=== PATIENT | female | born 1965 | race African-American/Black ===

== ENCOUNTER 2021-02-22 12:33 | Emergency (ER) | payer OTHER, SELFPAY ==
[2021-02-22 12:45] VITALS: BP 151/99; PULSE 110; RESP 16; TEMP 36.8; O2SAT 100
--- NOTE | 2021-02-22 13:10 | ECG_ITS ---
Measurements Intervals [place] Rate: 108 P: 72 [place]: 172 QRS: 49 QRSD: 84 T: 48 QT: 349 QTc: 468 Interpretive Statements SINUS TACHYCARDIA POSSIBLE LEFT ATRIAL ENLARGEMENT MINIMAL Q WAVES- ANTEROLAT/INF LEADS ABNORMAL ECG Electronically Signed On 02-22-2021 13:13:57 CDT by Tremaine Bianchi D.O.
[2021-02-22 13:30] LABS: Basophils Percent Auto 0.4 % (0.2-1.2); Eosinophils Percent Auto 0.2 % (0-4.4); Hematocrit 37.3 % (37.0-47.0); Hemoglobin 12.5 g/dL (12.0-15.0); Immature Granulocyte Absolute 0.01 K/mm3 (0.00-0.031); Immature Granulocyte Percent A 0.2 % (0-0.5); Lymphocytes Absolute Auto 1.94 K/mm3 (0.9-3.2); Lymphocytes Percent Auto 39.7 % (18.3-44.2); Mean Corpuscular HGB Conc 33.5 g/dl (32-36); Mean Corpuscular Hemoglobin 30.9 pg (26-34); Mean Corpuscular Volume 92.3 fl (80-100); Monocytes Absolute Auto 0.5 K/mm3 (0.1-0.6); Monocytes Percent Auto 9.2 % (2.6-8.5); Neutrophils Absolute Auto 2.5 K/mm3 (1.3-6.7); Neutrophils Percent Auto 50.3 % (45.5-73.1); Platelet Count Result 236 k/mm3 (150-375); Red Blood Count 4.04 M/mm3 (4.2-5.4); Red Cell Distribution Width 13.1 % (11.5-14.5); White Blood Count 4.9 K/mm3 (4.5-10.0)
[2021-02-22 13:33] LABS: Add Urine Microscopic? NO; Appearance Urine Clear (Clear); Bilirubin Urine Negative (Negative); Blood Urine Negative (Negative); Color Urine Colorless (Yellow); Glucose Urine UA Negative (Negative); Ketones Urine Negative (Negative); Leukocyte Esterase Ur Negative LEU/UL (Negative); Nitrate Urine Negative (Negative); Protein Urine Negative (Negative); Urobilinogen Urine Negative mg/dL (<2.0)
[2021-02-22 13:43] LABS: Specific Grav Ur 1.002 (1.001-1.035)
[2021-02-22 13:46] LABS: Alanine Aminotransferase 36 U/L (4-35); Albumin Level 4.3 g/dL (3.5-5.1); Alkaline Phosphatase 101 U/L (38-126); Anion Gap 9 mmol/L (8-16); Aspartate Amino Transferase 49 U/L (14-36); Bilirubin,Total 0.3 mg/dL (0.2-1.3); Blood Urea Nitrogen 3 mg/dL (7-17); Calcium 9.7 mg/dL (8.4-10.2); Carbon Dioxide 24 mmol/L (22-30); Chloride 108 mmol/L (98-107); Estimated CRCL calculation 75 ml/min; Estimated Glomerular Filt Rate > 60; Glucose 111 mg/dL (65-110); Potassium 3.5 mmol/L (3.4-5.0); Sodium 141 mmol/L (137-145)
[2021-02-22 14:40] VITALS: BP 140/78; PULSE 98; RESP 18; TEMP 36.8; O2SAT 100
[2021-02-22 15:14] LABS: Amphetamine Screen Urine Negative (Negative); Barbiturate Screen Urine Negative (Negative); Benzodiazepines Screen Urine Negative (Negative); Cannabinoid Screen Urine Positive (Negative); Cocaine Screen Urine Negative (Negative); Methadone Screen Urine Negative (Negative); Opiate Screen Urine Negative (Negative); Phencyclidine Screen Urine Negative (Negative)
[2021-02-22] MEDS: SODIUM CHLORIDE 0.9% IV 1,000 ML 999 ML IV CONT (15:45)
[2021-02-22] MEDS: FAMOTIDINE 20 MG/2 ML VIAL IV PUSH (15:45)
[2021-02-22] MEDS: HYOSCYAMINE SULFATE 0.125 MG TABLET PO (15:46)
--- NOTE | 2021-02-22 15:51 | ED.GENADULT ---
HPI - General Adult General Chief complaint: Anxiety Stated complaint: ANXIETY, NOT SLEPT IN 24HR Time Seen by Provider: 02/22/21 15:22 Source: patient and RN notes reviewed Mode of arrival: ambulatory Limitations: no limitations History of Present Illness HPI narrative: Patient is a 55-year-old female who presents to emergency department for evaluation of GI upset that was noticed this morning patient took an ambulance to the emergency department on arrival is in the room in no distress patient denies any vomiting diarrhea has psych history with recent hospitalizations but denies any suicidal or homicidal ideation at this time patient otherwise presents in no distress and is resting comfortably in the room upon arrival Related Data Allergies Allergy/AdvReac Type Severity Reaction Status Date / Time No Known Allergies Allergy Verified 02/22/21 15:01 Review of Systems Review of Systems: All systems reviewed & are unremarkable except as noted in HPI and below PMFSH Past Medical History Medical History (Updated 02/22/21 @ 15:57 by Franklin Donaldson PA-C) Abdominal pain Social History Social History (Updated 02/22/21 @ 15:55 by Franklin Donaldson PA-C) Smoking status: Never smoker Substance use type: does not use Exam Narrative: Exam Narrative: GENERAL: Well-appearing, well-nourished, and in no acute distress. HEAD: Normocephalic, atraumatic. EYES: PERRLA and EOMI. ENT: Nares clear, no rhinorrhea or epistaxis. Mucous membranes moist. CHEST: Clear to auscultation. No respiratory distress. No wheezes rales or rhonchi HEART: Regular rate and rhythm. No murmur heard. Normal peripheral pulses. ABDOMEN: Soft, nontender, nondistended EXTREMITIES: Normal range of motion. No edema. SKIN: Warm, dry, no rash. NEURO: No focal deficits. Alert and oriented x3. Cranial nerves II through XII grossly intact PSYCH: Normal mood and affect. Course Course Emergency Course: Patient in the room in no distress aware of case findings treatment plan and diagnosis agreeing to follow-up as instructed no high risk changes in the evaluation nontender abdominal exam Vital Signs Vital signs: Vital Signs Temperature 98.3 F 02/22/21 12:45 Pulse Rate 110 H 02/22/21 12:45 Respiratory Rate 16 02/22/21 12:45 Blood Pressure 151/99 H 02/22/21 12:45 Pulse Oximetry 100 07/21/21 12:45 Temperature 98.3 F 02/22/21 14:40 Pulse Rate 98 02/22/21 14:40 Respiratory Rate 18 02/22/21 14:40 Blood Pressure 140/78 02/22/21 14:40 Pulse Oximetry 100 02/22/21 14:40 Medical Decision Making MDM Narrative Medical decision making narrative: Patient in the room afebrile nontoxic-appearing no distress felt appropriate for outpatient reevaluation resting comfortably in the room in no distress Vital Signs Vital Signs: Vital Signs Temperature 98.3 F 02/22/21 12:45 Pulse Rate 110 H 02/22/21 12:45 Respiratory Rate 16 02/22/21 12:45 Blood Pressure 151/99 H 02/22/21 12:45 Pulse Oximetry 100 02/22/21 12:45 Temperature 98.3 F 02/22/21 14:40 Pulse Rate 98 02/22/21 14:40 Respiratory Rate 18 02/22/21 14:40 Blood Pressure 140/78 02/22/21 14:40 Pulse Oximetry 100 02/22/21 14:40 Lab Data Result diagrams: 02/22/21 13:15 02/22/21 13:15 Labs: Lab Results 02/22/21 02/22/21 02/22/21 Range/Units 13:15 13:15 13:15 WBC 4.9 (4.5-10.0) K/mm3 RBC 4.04 L (4.2-5.4) M/mm3 Hgb 12.5 (12.0-15.0) g/dL Hct 37.3 (37.0-47.0) % MCV 92.3 (80-100) fl MCH 30.9 (26-34) pg MCHC 33.5 (32-36) g/dl RDW 13.1 (11.5-14.5) % Plt Count 236 (150-375) k/mm3 MPV 11.0 H (7.4-10.4) fl Immature Gran % (Auto) 0.2 (0-0.5) % Neut % (Auto) 50.3 (45.5-73.1) % Lymph % (Auto) 39.7 (18.3-44.2) % [place] % (Auto) 9.2 H (2.6-8.5) % Eos % (Auto) 0.2 (0-4.4) % Baso % (Auto) 0.4 (0.2-1.2) % Lymph # (Auto) 1.94 (0.9-3.2) K/mm3 [place]
[2021-02-22 16:40] VITALS: BP 122/68; PULSE 78; RESP 18; O2SAT 99
== END 2021-02-22 16:41 | disposition home or self-care (01) ==
PROVIDERS: Emergency Medicine; Emergency Provider Emergency Medicine
DX: R10.9 Unspecified abdominal pain (principal)
CPT/HCPCS: 36415; 80053; 80307; 81003; 85025; 93005; 96361; 96374; 99284; A9270; J7030

== ENCOUNTER 2021-05-11 12:39 | Emergency (ER) | payer OTHER, SELFPAY ==
--- NOTE | ~2021-05-11 | CT_ITS ---
EXAMINATION: CT abdomen pelvis w con EXAM DATE: 05/11/2021 15:06 INDICATION: Epigastric pain. TECHNIQUE: Spiral CT of the abdomen and pelvis was performed following intravenous injection of 100 m L Omnipaque 350. Axial, coronal and sagittal images of the abdomen and pelvis were reviewed. The do se-length product (DLP) for this examination was 207.19 mGy-cm. The exposure was tailored according to patient size (auto mA exposure control), and iterative reconstruction (ASIR) was used as additiona l dose reduction technique. There is no prior study for comparison. FINDINGS: The liver, spleen, adrenal glands and pancreas are unremarkable. Gallbladder is unremarkab le. No biliary obstruction. The patient appears to have had a hysterectomy, and there is right adne xal mass measuring 5.7 cm, appears to have some calcification inside. Potentially could be a teratoma but malignant histology not excludable and follow-up pelvic sonogram is indicated. Kidneys enhance symmetrically. No hydronephrosis. The bladder is unremarkable. There is no retroperitoneal or pelvi c lymphadenopathy. The appendix is normal. The stomach and small bowel are unremarkable. There is moderate to large am ount of colonic stool. No free intraperitoneal gas. The heart is normal in size. There are no pe ricardial or pleural effusions. The lung bases are unremarkable. There are no osteoblastic or osteo lytic lesions identified. IMPRESSION: 1. Right adnexal mass; follow-up nonemergent pelvic sonogram. 2. Moderate to large amount of colonic stool and gas. Consider constipation. Reviewed, dictated and finalized at location G.
--- NOTE | 2021-05-11 13:16 | ED.ABDPAIN ---
HPI - Abdominal Pain General Chief Complaint: Abdominal Pain Stated Complaint: abd pain for 1 week Time Seen by Provider: 05/11/21 13:07 Source: RN notes reviewed History of Present Illness HPI narrative: Patient presents emergency department from home for abdominal pain. Patient states she has been having dull pain for the past 2 weeks. The pain is located in the upper abdomen described as burning in nature. States the pain will come and go but does not fully resolve she denies any fevers or chills nausea vomiting diarrhea or any other symptoms states she supposed be on omeprazole but has been out of her medication Related Data Allergies Allergy/AdvReac Type Severity Reaction Status Date / Time Penicillins Allergy Rash Verified 05/11/21 13:21 Review of Systems Review of Systems: Gen.: Denies fevers or chills ENT: Denies congestion Respiratory: Denies shortness of breath or cough CV: Denies chest pain or palpitations GI: See HPI denies burning, urgency, frequency or hematuria Musculoskeletal: Denies back pain or muscle pain Neuro: Denies numbness, tingling, weakness or focal weakness Skin: Denies rash Except as documented, all other systems reviewed and negative [facility] Past Medical History Medical History Abdominal pain Social History Social History Smoking status: Never smoker Substance use type: does not use Exam Narrative: APPEARANCE: No acute distress, nontoxic, resting in bed HEENT: Normocephalic, atraumatic, OMM RESPIRATORY: No respiratory distress, clear to auscultation bilaterally with no rhonchi wheezing or rales CARDIOVASCULAR: RRR s murmur ABDOMINAL: Soft nondistended tender palpation left upper quadrant epigastric and right upper quadrant no tenderness right lower quadrant left lower quadrant no rebound or guarding MUSCULOSKELETAl: Moves all extremities. No clubbing, cyanosis or edema. NEURO: Awake and alert. Following commands, speech normal, no focal deficits SKIN:: Warm, dry. Normal Color PSYCHIATRIC: Normal affect/mood Course Course Emergency Course: Patient states he is feeling much better following GI cocktail. Patient states that they are feeling much better at this time. States abdominal pain has resolved. Repeat abdominal exam shows the patient's abdomen to be soft and nontender. Discussed with patient results of workup and diagnosis. Discussed need for follow-up with primary care physician, reasons to return to the emergency department in proper use of medication. Patient understands and agrees to current treatment plan. Discussed CT results and need for follow-up with [facility] will refer Vital Signs Vital signs: Vital Signs Temperature 97.8 F 05/11/21 13:17 Pulse Rate 100 05/11/21 13:17 Respiratory Rate 18 05/11/21 13:17 Blood Pressure 99/72 L 05/11/21 13:17 Pulse Oximetry 99 05/11/21 13:17 Temperature 97.8 F 05/11/21 13:17 Pulse Rate 100 05/11/21 13:17 Respiratory Rate 18 05/11/21 13:17 Blood Pressure 99/72 L 05/11/21 13:17 Pulse Oximetry 99 05/11/21 13:17 MDM - Abdominal Pain MDM Narrative Medical decision making narrative: Patient's abdomen is soft without significant pain or signs of surgical abdomen on serial exams. Lab and x-ray evaluations are reviewed and patient is felt to be a reasonable candidate for outpatient management. Patient was instructed as to limitations of x-ray and laboratory evaluation and encouraged to return to ED or primary physician for repeat exam in 12 hours if continued or worsening pain Lab Data Result diagrams: 05/11/21 14:06 05/11/21 14:06 Labs: Lab Results 05/11/21 05/11/21 05/11/21 Range/Units 13:36 14:06 14:06 WBC 6.3 (4.5-10.0) K/mm3 RBC 4.40 (4.2-5.4) M/mm3 Hgb 13.9 (12.0-15.0) g/dL Hct 39.7 (37.0-47.0) % MCV 90.2 (80-100) fl MCH 31.6 (
[2021-05-11 13:17] VITALS: BP 99/72; PULSE 100; RESP 18; TEMP 36.6; O2SAT 99
[2021-05-11 14:03] LABS: Add Urine Microscopic? YES; Appearance Urine Cloudy (Clear); Bacteria Urine Trace /hpf; Bilirubin Urine Negative (Negative); Blood Urine Negative (Negative); Color Urine Yellow (Yellow); Glucose Urine UA Negative (Negative); Ketones Urine Negative (Negative); Leukocyte Esterase Ur Negative LEU/UL (Negative); Mucus Urine Rare /lpf; Nitrate Urine Negative (Negative); Protein Urine Negative (Negative); RBC Urine 0-2 /hpf (0-2); Specific Grav Ur 1.008 (1.001-1.035); Squamous Epithelial Cell Urine Few /hpf (Few); Urobilinogen Urine Negative mg/dL (<2.0); WBC Urine 0-3 /hpf
[2021-05-11 14:18] LABS: Basophils Percent Auto 0.5 % (0.2-1.2); Eosinophils Absolute Auto 0.1 K/mm3 (0-0.3); Eosinophils Percent Auto 1.1 % (0-4.4); Hematocrit 39.7 % (37.0-47.0); Hemoglobin 13.9 g/dL (12.0-15.0); Immature Granulocyte Absolute 0.01 K/mm3 (0.00-0.031); Immature Granulocyte Percent A 0.2 % (0-0.5); Lymphocytes Absolute Auto 3.51 K/mm3 (0.9-3.2); Lymphocytes Percent Auto 56.1 % (18.3-44.2); Mean Corpuscular Hemoglobin 31.6 pg (26-34); Mean Corpuscular Volume 90.2 fl (80-100); Mean Platelet Volume 11.3 fl (7.4-10.4); Monocytes Absolute Auto 0.5 K/mm3 (0.1-0.6); Monocytes Percent Auto 7.7 % (2.6-8.5); Neutrophils Absolute Auto 2.2 K/mm3 (1.3-6.7); Neutrophils Percent Auto 34.4 % (45.5-73.1); Platelet Count Result 225 k/mm3 (150-375); Red Cell Distribution Width 12.8 % (11.5-14.5); White Blood Count 6.3 K/mm3 (4.5-10.0)
[2021-05-11 14:24] LABS: Alanine Aminotransferase 20 U/L (4-35); Albumin Level 4.6 g/dL (3.5-5.1); Alkaline Phosphatase 121 U/L (38-126); Anion Gap 8 mmol/L (8-16); Aspartate Amino Transferase 41 U/L (14-36); Bilirubin,Total 0.4 mg/dL (0.2-1.3); Blood Urea Nitrogen 11 mg/dL (7-17); Calcium 9.7 mg/dL (8.4-10.2); Carbon Dioxide 28 mmol/L (22-30); Chloride 102 mmol/L (98-107); Estimated CRCL calculation 57 ml/min; Estimated Glomerular Filt Rate > 60; Glucose 104 mg/dL (65-110); Lipase 72 U/L (23-300); Potassium 4.1 mmol/L (3.4-5.0); Sodium 138 mmol/L (137-145)
[2021-05-11 16:09] VITALS: BP 111/80; PULSE 87; RESP 18; O2SAT 97
== END 2021-05-11 16:13 | disposition home or self-care (01) ==
PROVIDERS: Family Medicine; Emergency Provider Emergency Medicine
DX: R10.13 Epigastric pain (principal); N94.89 Other specified conditions associated with female genital organs and menstrual cycle
CPT/HCPCS: 36415; 74177; 80053; 81001; 83690; 85025; 99284; A9270; Q9967

== ENCOUNTER 2021-06-12 18:50 | Emergency (ER) | payer OTHER, SELFPAY ==
--- NOTE | ~2021-06-12 | CT_ITS ---
EXAMINATION: CT abdomen pelvis w con DATE: 06/13/2021 00:31 INDICATION: Low abdominal pain. TECHNIQUE: Computed tomography (CT) of the abdomen and pelvis was performed with 100 mL Omnipaque 350 intravenous contrast. Automated exposure control and iterative reconstruction technique were employe d. The dose-length product was 201.74 mGy-cm. COMPARISON: CT abdomen and pelvis 05/11/2021 FINDINGS: The visualized portions of the lung bases are clear without pneumonia or pleural effusion. The heart size is normal. No pericardial effusion. The liver, gallbladder, spleen, pancreas, adrenal glands, and right kidney are normal. There is a 5 mm cyst in left kidney. There are no dilated loops of bowel. The appendix is normal. There is a 5.2 cm mass measuring soft tissue attenuation with perip heral calcifications in right adnexa. There are no pathologically enlarged lymph nodes. There is no f ree intraperitoneal fluid. There is mild lumbar spondylosis. IMPRESSION: 1. 5.2 cm right adnexal mass, stable from 05/11/2021. The differential diagnosis includes benign or ma lignant ovarian mass and pedunculated uterine fibroid. Pelvis ultrasound is recommended. Reviewed, dictated and finalized at location A. [facility] IMPRESSION: 1. 5.2 cm right adnexal mass, stable from 05/11/2021. The differential diagnosis includes benign or malignant ovarian mass and pedunculated uterine fibroid. Pe lvis ultrasound is recommended.
[2021-06-12 18:52] VITALS: BP 132/94; PULSE 104; RESP 16; TEMP 36.8; O2SAT 100
[2021-06-12 19:21] LABS: Basophils Percent Auto 0.3 % (0.2-1.2); Eosinophils Percent Auto 0.4 % (0-4.4); Hematocrit 36.9 % (37.0-47.0); Hemoglobin 12.5 g/dL (12.0-15.0); Immature Granulocyte Absolute 0.01 K/mm3 (0.00-0.031); Immature Granulocyte Percent A 0.1 % (0-0.5); Lymphocytes Absolute Auto 4.53 K/mm3 (0.9-3.2); Lymphocytes Percent Auto 61.2 % (18.3-44.2); Mean Corpuscular HGB Conc 33.9 g/dl (32-36); Mean Corpuscular Hemoglobin 31.1 pg (26-34); Mean Corpuscular Volume 91.8 fl (80-100); Mean Platelet Volume 10.7 fl (7.4-10.4); Monocytes Absolute Auto 0.6 K/mm3 (0.1-0.6); Monocytes Percent Auto 7.7 % (2.6-8.5); Neutrophils Absolute Auto 2.2 K/mm3 (1.3-6.7); Neutrophils Percent Auto 30.3 % (45.5-73.1); Platelet Count Result 235 k/mm3 (150-375); Red Blood Count 4.02 M/mm3 (4.2-5.4); Red Cell Distribution Width 13.6 % (11.5-14.5); White Blood Count 7.4 K/mm3 (4.5-10.0)
[2021-06-12 19:35] LABS: Alanine Aminotransferase 18 U/L (4-35); Albumin Level 4.2 g/dL (3.5-5.1); Alkaline Phosphatase 87 U/L (38-126); Anion Gap 7 mmol/L (8-16); Aspartate Amino Transferase 25 U/L (14-36); Bilirubin,Total 0.3 mg/dL (0.2-1.3); Blood Urea Nitrogen 10 mg/dL (7-17); Calcium 9.7 mg/dL (8.4-10.2); Carbon Dioxide 26 mmol/L (22-30); Chloride 107 mmol/L (98-107); Estimated CRCL calculation 85 ml/min; Estimated Glomerular Filt Rate > 60; Glucose 108 mg/dL (65-110); Lipase 51 U/L (23-300); Potassium 3.5 mmol/L (3.4-5.0); Sodium 140 mmol/L (137-145)
[2021-06-12 19:36] LABS: Add Urine Microscopic? NO; Appearance Urine Clear (Clear); Bilirubin Urine Negative (Negative); Blood Urine Negative (Negative); Color Urine Yellow (Yellow); Glucose Urine UA Negative (Negative); Ketones Urine Negative (Negative); Leukocyte Esterase Ur Negative LEU/UL (Negative); Nitrate Urine Negative (Negative); Protein Urine Negative (Negative); Specific Grav Ur 1.014 (1.001-1.035); Urobilinogen Urine Negative mg/dL (<2.0)
[2021-06-12 23:38] VITALS: BP 142/99; PULSE 98; RESP 18; O2SAT 100
[2021-06-13] MEDS: KETOROLAC 30 MG/ML VIAL (*BKC) IV PUSH (00:19)
[2021-06-13 01:11] LABS: HIV 1/2 Ab P24 Ag Result Negative (Negative)
[2021-06-13 01:35] VITALS: BP 140/78; PULSE 87; RESP 18; O2SAT 100
[2021-06-13 01:37] LABS: Hepatitis B Surface Antigen Negative (Negative)
[2021-06-13 01:43] LABS: HAV RESULT Negative (Negative); Hepatitis B Core IgM Result Negative (Negative)
[2021-06-13 01:54] LABS: Hepatitis C Virus Antibody Negative (Negative)
--- NOTE | 2021-06-13 02:25 | ED.GENADULT ---
HPI - General Adult General Chief complaint: Abdominal Pain Stated complaint: Abd pain & constipation Time Seen by Provider: 06/12/21 23:23 History of Present Illness HPI narrative: Patient is a 56-year-old female who presents ER with concerns for possible contraction related sexual change infection as well as some chronic abdominal pain. Patient reports all symptoms began in late March after sleeping with another individual. She reports has been having crampy abdominal pain since then. She has been evaluated in the ER and diagnosed with constipation. She also is concerned that she has had a 60 pound weight loss since then. She thinks it could be related to an ovarian cyst that was seen during the previous hospitalization. Patient reports that she is concerned she could have HIV from sleeping with this individual and is concerned she could potentially have hepatitis C because he had told her that he had hepatitis C but was treated. Patient denies any aggravating or alleviating factors for her abdominal discomfort. Cannot tell me when her last bowel movement was. Related Data Allergies Allergy/AdvReac Type Severity Reaction Status Date / Time Penicillins Allergy Rash Verified 05/11/21 13:21 Review of Systems Review of Systems: All systems reviewed & are unremarkable except as noted in HPI and below Constitutional: Constitutional: Denies chills, Denies fever(s) and Denies weakness ENT: Denies nasal congestion and Denies sore throat Respiratory: Respiratory: Denies cough and Denies dyspnea Gastrointestinal: Gastrointestinal: Reports abdominal pain, Reports constipation, Denies nausea and Denies vomiting Musculoskeletal: Musculoskeletal: Denies back pain and Denies muscle cramps Integumentary/Breasts: Skin/Breast: Denies erythema, Denies rash and Reports skin ulcer (Scabbing of the face) PMFSH Past Medical History Medical History (Updated 06/13/21 @ 02:34 by Quang Troncoso MD) Patient denies significant medical history Surgical History Surgical History (Updated 06/13/21 @ 02:31 by Quang Troncoso MD) History of hysterectomy Social History Social History Smoking status: Never smoker Substance use type: does not use Exam Narrative: GENERAL: Well-appearing, well-nourished, and in no acute distress. HEAD: Normocephalic, atraumatic. EYES: PERRL and EOMI. ENT: Mucous membranes moist. CHEST: Clear to auscultation. No respiratory distress. HEART: Regular rate and rhythm. Normal peripheral pulses. ABDOMEN: Soft, nontender, nondistended. EXTREMITIES: Normal range of motion. No edema. SKIN: Warm, dry. Multiple scabs of the face in different stages of healing. No cellulitis. No pustules or vesicles. NEURO: Alert and oriented x3. Course Course Emergency Course: Patient resting comfortably. Unremarkable evaluation. Discussed that the adnexal mass has not increased in size. She reports she has follow-up with gynecology in 2 days. Lymphocytes trending up, nonspecific. Encouraged her to keep her appointment. Vital Signs Vital signs: Vital Signs Temperature 98.2 F 06/12/21 18:52 Pulse Rate 104 H 06/12/21 18:52 Respiratory Rate 16 06/12/21 18:52 Blood Pressure 132/94 H 06/12/21 18:52 Pulse Oximetry 100 06/12/21 18:52 Temperature 98.2 F 06/12/21 18:52 Pulse Rate 87 06/13/21 01:35 Respiratory Rate 18 06/13/21 01:35 Blood Pressure 140/78 06/13/21 01:35 Pulse Oximetry 100 06/13/21 01:35 Medical Decision Making Vital Signs Vital Signs: Vital Signs Temperature 98.2 F 06/12/21 18:52 Pulse Rate 104 H 06/12/21 18:52 Respiratory Rate 16 06/12/21 18:52 Blood Pressure 132/94 H 06/12/21 18:52 Pulse Oximetry 100 06/12/21 18:52 Temperature 98.2 F 06/12/21 18:52 Pulse Rate 87 06/13/21 01:35 Respiratory Rate 18 06/13/21 01:35 Blood Pressure 140/78 06/13/21 01:35 Pulse Oximetry 100
[2021-06-13 02:48] VITALS: BP 137/84; PULSE 86; RESP 16; O2SAT 99
== END 2021-06-13 02:50 | disposition home or self-care (01) ==
PROVIDERS: Emergency Medicine; Emergency Provider Emergency Medicine
DX: N94.89 Other specified conditions associated with female genital organs and menstrual cycle (principal)
CPT/HCPCS: 36415; 74177; 80053; 80074; 81003; 83690; 85025; 86703; 96374; 99284; G0432; J1885; Q9967

== ENCOUNTER 2022-01-06 00:59 | Emergency (ER) | payer BC, SELFPAY ==
--- NOTE | ~2022-01-06 | CT_ITS ---
EXAMINATION: CT abdomen pelvis wo con DATE: 01/06/2022 04:04 INDICATION: Left leg pain TECHNIQUE: Computed tomography (CT) of the abdomen and pelvis was performed without intravenous contr ast. The dose-length product (DLP) was 157.91 mGy-cm. Automated exposure control and iterative recons truction technique were employed. COMPARISON: 06/13/2021 FINDINGS: The lung bases are clear. The heart size is normal. Within the limitations of noncontrast e xamination, the liver, spleen, pancreas, gallbladder, and adrenal glands are normal. There are puncta te nonobstructing stones of the right kidney. The left kidney is unremarkable. No stones are identifi ed in the ureters or bladder. There is no hydronephrosis or hydroureter. No pathologically enlarged a bdominal or pelvic lymph nodes are identified. There is no free intraperitoneal gas or evidence of sahara wel obstruction. There are multiple pelvic phleboliths. Calcified uterine fibroids are also noted. Th ere is moderate osteoarthritis of the hips. IMPRESSION: 1. No CT correlate for the patient's symptoms. Punctate right nephrolithiasis. Reviewed, dictated and finalized at location A.
[2022-01-06 01:02] VITALS: BP 150/107; PULSE 107; RESP 18; TEMP 37.1; O2SAT 100
[2022-01-06 01:57] LABS: Basophils Percent Auto 0.4 % (0.2-1.2); Eosinophils Absolute Auto 0.1 K/mm3 (0-0.3); Eosinophils Percent Auto 0.6 % (0-4.4); Hematocrit 35.1 % (37.0-47.0); Hemoglobin 12.1 g/dL (12.0-15.0); Immature Granulocyte Absolute 0.02 K/mm3 (0.00-0.031); Immature Granulocyte Percent A 0.2 % (0-0.5); Lymphocytes Absolute Auto 5.03 K/mm3 (0.9-3.2); Lymphocytes Percent Auto 51.5 % (18.3-44.2); Mean Corpuscular HGB Conc 34.5 g/dl (32-36); Mean Corpuscular Hemoglobin 31.5 pg (26-34); Mean Corpuscular Volume 91.4 fl (80-100); Mean Platelet Volume 10.1 fl (7.4-10.4); Monocytes Percent Auto 9.9 % (2.6-8.5); Neutrophils Absolute Auto 3.7 K/mm3 (1.3-6.7); Neutrophils Percent Auto 37.4 % (45.5-73.1); Platelet Count Result 333 k/mm3 (150-375); Red Blood Count 3.84 M/mm3 (4.2-5.4); Red Cell Distribution Width 13.4 % (11.5-14.5); White Blood Count 9.8 K/mm3 (4.5-10.0)
[2022-01-06 01:58] LABS: Appearance Urine Clear (Clear); Bilirubin Urine Negative (Negative); Blood Urine Negative (Negative); Color Urine Yellow (Yellow); Glucose Urine UA Negative (Negative); Ketones Urine Negative (Negative); Leukocyte Esterase Ur Negative LEU/UL (Negative); Nitrate Urine Negative (Negative); Protein Urine Negative (Negative); Specific Grav Ur >= 1.030 (1.001-1.035); Urobilinogen Urine 0.2 mg/dL (<2.0); pH Urine 5.5 (5.0-9.0)
--- NOTE | 2022-01-06 01:58 | ED.BACK ---
HPI - Back Pain/Injury General Chief Complaint: Back Pain/Injury Stated Complaint: back pain Time Seen by Provider: 01/06/22 01:13 Source: patient Mode of arrival: ambulatory Limitations: no limitations History of Present Illness HPI Narrative: This is a 56 year old female who presents for evaluation of left flank pain. She states her pain started 1 week ago. Her pain has been intermittent until today. She states today her pain has been constant. She was evaluated in outside ER 2 days ago, and she states she was diagnosed with UTI. She states she was given prescription for antibiotics but she was not given pain medication. Her pain with worse with movement. She denies any injuries. She sates she had xrays done at outside hospital. She denies fever, chills, nausea, vomiting or hematuria. She reports lower abdominal pain but she thinks that is due to ovary problems . She also states she is homeless. Related Data Allergies Allergy/AdvReac Type Severity Reaction Status Date / Time Penicillins Allergy Rash Verified 01/06/22 01:04 Review of Systems Review of Systems: All systems reviewed & are unremarkable except as noted in HPI and below Constitutional: Constitutional: Denies chills and Denies fatigue Respiratory: Respiratory: Denies chest congestion Gastrointestinal: Gastrointestinal: Reports abdominal pain, Denies diarrhea, Denies nausea and Denies vomiting Genitourinary: Genitourinary: Denies dysuria and Reports flank pain Musculoskeletal: Musculoskeletal: Reports back pain PMFSH Past Medical History Medical History (Updated 01/06/22 @ 05:21 by Merna Jacobson MD) Patient denies significant medical history Surgical History Surgical History (Updated 06/13/21 @ 02:31 by Quang Troncoso MD) History of hysterectomy Social History Social History Smoking status: Never smoker Substance use type: does not use Exam Const: General: no acute distress Nutritional Appearance: well nourished Orientation/consciousness: patient oriented x3 Limitations: no limitations HENMT: Mouth: Yes Normal oral and palatal mucosa present Eyes: Pupils: Equal, round and reactive pupils present EOM: EOMs intact bilaterally Chest: Chest palpation & inspection: normal inspection of the chest Resp: Effort & Inspection: normal respiratory effort, not labored and no retractions Auscultation: clear to auscultation bilaterally Cardio: Rate: regular rate Rhythm: regular rhythm Heart sounds: no murmurs GI: GI Palp: Yes Soft to palpation, Yes Tenderness to palpation present (GI) (suprapubic), No Guarding due to palpation present (GI), No Rigid due to palpation and No Hernia present Auscultation: normal bowel sounds Back/Spine/Pelvis: Back: no CVA tenderness Skin: General skin exam: normal color Rashes: no rashes Neuro: General: patient oriented x3, moves all extremities and CN's II-XI intact bilaterally Psych: Mental Status: mental status grossly normal Attitude: cooperative Other: paranoid Course Reevaluation(s) Reevaluation #1: Patient is sleeping. I discussed no acute findings on CT. Labs are unremarkable. She does not have UTI. Date: 01/06/22 Time: 05:18 Vital Signs Vital signs: Vital Signs Temperature 98.7 F 01/06/22 01:02 Pulse Rate 107 H 01/06/22 01:02 Respiratory Rate 18 01/06/22 01:02 Blood Pressure 150/107 H 01/06/22 01:02 Pulse Oximetry 100 01/06/22 01:02 Oxygen Delivery Room Air 01/06/22 01:02 Temperature 98.7 F 01/06/22 01:02 Pulse Rate 78 01/06/22 06:02 Respiratory Rate 18 01/06/22 06:02 Blood Pressure 152/92 H 01/06/22 06:02 Pulse Oximetry 100 01/06/22 06:02 Oxygen Delivery Room Air 01/06/22 01:02 MDM - Back Pain/Injury Medical Records Attestation: I reviewed the patient's medical records. Lab Data Attestation: I reviewed the patient's lab results. Result maximus
[2022-01-06 02:09] LABS: Atypical Lymphocytes Present; Platelet Estimate Adequate (Adequate)
[2022-01-06 02:13] LABS: Alanine Aminotransferase 20 U/L (6-35); Alkaline Phosphatase 101 U/L (38-126); Anion Gap 6 mmol/L (8-16); Aspartate Amino Transferase 43 U/L (14-36); Bilirubin,Total 0.2 mg/dL (0.2-1.3); Blood Urea Nitrogen 12 mg/dL (7-17); Carbon Dioxide 29 mmol/L (22-30); Chloride 105 mmol/L (98-107); Estimated CRCL calculation 74 ml/min; Estimated Glomerular Filt Rate > 60; Glucose 91 mg/dL (65-110); Lipase 59 U/L (23-300); Potassium 3.8 mmol/L (3.4-5.0); Sodium 140 mmol/L (137-145)
[2022-01-06 02:33] LABS: Add Urine Microscopic? NO
[2022-01-06 03:55] VITALS: BP 152/82; PULSE 86; RESP 18; O2SAT 99
[2022-01-06 06:02] VITALS: BP 152/92; PULSE 78; RESP 18; O2SAT 100
== END 2022-01-06 06:05 | disposition home or self-care (01) ==
PROVIDERS: Emergency Provider General Practice
DX: N20.0 Calculus of kidney (principal)
CPT/HCPCS: 36415; 74176; 80053; 81003; 81025; 83690; 85025; 99284